=== PATIENT | female | born 1990 | race African-American/Black ===

== ENCOUNTER 2017-02-11 08:25 | Emergency (ER) | payer SELFPAY ==
[~2017-02-11] VITALS: Ht 167.6 cm; Wt 72.6 kg
[~2017-02-11 08:25] MED LIST: CYCLOBENZAPRINE10 MG ORAL; FOLIC ACID1 MG ORAL; GABAPENTIN400 MG ORAL; IBUPROFEN600 MG ORAL; KEFLEX500 MG ORAL; MACRODANTIN100 MG PO; METHOTREXATE2.5 MG PO; NKM; NORCO 5-325 TA1 EAC1 ORAL; NORCO 5-325 TA1 EACH ORAL; PLAQUENIL200 MG ORAL; PREDNISONE20 M1 PO; TRAMADOL HCL50 MG ORAL; VALIUM5 MG ORAL; VICODIN 5-5001 EACH PO; ZOFRAN4 MG ORAL
[2017-02-11 09:13] LABS: APPEARANCE,URINE SLIGHTLY CLOUDY; KETONES,URINE NEGATIVE (NEGATIVE); LEUKOCYTE ESTERASE ,URINE 1+ (NEGATIVE); NITRITE,URINE POSITIVE (NEGATIVE); PH,URINE 6 (4.5-8.0); PROTEIN,URINE NEGATIVE (NEGATIVE); UROBILINOGEN,URINE NORMAL MG/DL (0.0-1.0)
[2017-02-11 09:31] LABS: BACTERIA,URINE MANY /HPF; RBC,URINE 0-2 /HPF (0 - 2); SQUAMOUS EPITHELIAL CELL,UR MANY /LPF (NONE/OCC); WBC,URINE 15-20 /HPF (0 - 2)
[2017-02-11] MEDS ORDERED: NITROFURANTOIN100 M2 ORAL (10:40)
[2017-02-11 11:16] VITALS: BP 146/74
--- NOTE | 2017-02-12 09:32 | Diagnostic Imaging Report ---
Indication:Pelvic pain. Positive test Technique: Grayscale and duplex Doppler imaging of the pelvis performed utilizing a transabdominal scan and endovaginal scan. Comparison: None Findings: There is a small saccular structure within the central part of the uterus. This could be early intrauterine but at this point there is no pole or yolk sac identified. The findings are therefore nonspecific and could be due to other causes such as pseudo-gestational sac. Ectopic is not excluded. There is a small amount of fluid within the central part of the uterus which may be blood. Followup is recommended. The ovaries are unremarkable in appearance. Right ovary 2.3 x 1.3 x 1.7 CM. Left ovary 3.3 x 2.0 x 2.4 CM. Impression: Early intrauterine versus pseudo-gestational sac. Ectopic is not excluded. Followup ultrasound and correlation with serial quantitative beta-hCG recommended.
--- NOTE | 2017-02-14 13:42 | Emergency Room Report ---
History of Present Illness General Chief Complaint: Complications Source: Patient Present Illness HPI Patient presents with complaints of lower abdominal cramping Patient had missed one menstrual cycle and is unsure she was Denies any right lower abdominal pain denies any chest pain or short of breath Denies any spotting Denies any dysuria frequency Denies any flank pain Pain in the mid lower abdominal region is 3 at 10 cramping in nature Allergies: Coded Allergies: No Known Allergies (Unverified , 06/10/12) Patient History Past Medical History: see triage record Pertinent Family History: none Last Menstrual Period: 01/03/17 Now: Yes : 2 Para: 2 Reviewed Nursing Documentation: PMH: Agreed, PSxH: Agreed Nursing Documentation-PMH Hx Hypertension: Yes Hx Cancer: Yes - HX REMISSION CERVICAL CANCER Review of Systems All Other Systems: negative except mentioned in HPI Physical Exam Vital Signs Date Time Temp Pulse Resp B/P Pulse Ox O2 Delivery O2 Flow Rate FiO2 02/11/17 08:28 98.6 79 16 152/96 100 Room Air Sp02 EP Interpretation: reviewed, normal General Appearance: well appearing, no apparent distress Head: normocephalic, atraumatic Eyes: bilateral eye EOMI, bilateral eye PERRL ENT: hearing grossly normal, normal pharynx, TMs + canals normal, uvula midline Neck: full range of motion, supple, no meningismus, no bony tend Respiratory: lungs clear, normal breath sounds, no rhonchi, no respiratory distress, no retraction, no accessory muscle use Cardiovascular #1: normal peripheral pulses, regular rate, rhythm, no edema, no gallop, no JVD, no murmur Gastrointestinal: normal bowel sounds, non tender, soft, no mass, no organomegaly, non-distended, no guarding, no hernia, no pulsatile mass, no rebound Genitourinary: no CVA tenderness Musculoskeletal: normal inspection Neurologic: oriented x3, responsive, salt operator III-XII nml as tested, motor strength/ tone normal, sensory intact Psychiatric: mood/affect normal Skin: normal color, no rash, warm/dry, palpation normal Lymphatic: normal inspection, no adenopathy Medical Decision Making Diagnostic Impression: Primary Impression: UTI (urinary tract infection) ER Course With the patient's history and examination, multiple differentials considered, including but not limited to , ectopic , ovarian torsion, gastritis, cholecystitis, pancreatitis, appendicitis Patient's test is positive beta Quant is at 2700 patient's ultrasound shows questionable early gestational sac However this is very early in limited study Urine sample also show significant infection Patient is placed on antibiotics and requires close followup Beta Quant 2700 UA: Positive nitrites positive white blood cells CT/MRI/US Diagnostic Results CT/MRI/US Diagnostic Results : Impression Pelvic ultrasound:Impression: Early intrauterine versus pseudo-gestational sac. Ectopic is not excluded. Followup ultrasound and correlation with serial quantitative beta-hCG recommended. Last Vital Signs Date Time Temp Pulse Resp B/P Pulse Ox O2 Delivery O2 Flow Rate FiO2 02/11/17 11:16 89 14 146/74 98 Room Air 02/11/17 08:28 98.6 Status: improved Disposition: HOME, SELF-CARE Condition: Improved Scripts Nitrofurantoin Monohyd/M-Cryst* (MACROBID 100 MG*) 100 Mg Capsule 100 MG ORAL EVERY 12 HOURS for 7 Days, CAP Prov: ISABEL COX D.O. 02/11/17 Referrals: NOT CHOSEN IPA/MD,REFERRING (PCP) Patient Instructions: Abdominal Pain During , Yimr-mn-Irds, Urinary Tract Infection, Lxfh-am-Dabt Additional Instructions: Patient is provided with the discharge instructions notified to follow up with primary doctor in the next 2-3 days otherwise return to the er with any worsening symptoms. Please note that this report is being documented using [employer] technology. This can lead to erroneous entry secondary to incorrect interpretation by the dictating instrument. ISABEL COX D.O. February 14, 2017 13:42
== END 2017-02-11 11:17 | disposition home or self-care (01) ==
LOC: EMR 08:55
DX: O23.40 Unspecified infection of urinary tract in pregnancy, unspecified trimester (principal); O10.919 Unspecified pre-existing hypertension complicating pregnancy, unspecified trimester; Z85.41 Personal history of malignant neoplasm of cervix uteri
CPT/HCPCS: 36415; 76801; 76830; 81003; 84702; 87086; 87181; 99284